=== PATIENT | male | born 1965 | race Caucasian/White ===

== ENCOUNTER 2023-06-17 17:05 | Inpatient (IN) | payer OTHER ==
[2023-06-17] MEDS ORDERED: Ondansetron PF 4 MG/2 ML Vial ONE (17:19)
[2023-06-17] MEDS ORDERED: Acetaminophen 500 MG TAB ONE (17:20)
[2023-06-17 17:49] LABS: #Eosinphils 0.3 10x3/uL (0.0-0.5); #Monocytes 0.1 10x3/uL (0.0-1.1); #Neutrophils 3.2 10x3/uL (1.5-8.4); %Basophils 0.4 % (0.0-2.0); %Eosinophils 5.4 % (0.0-6.0); %Lymphocytes 27.3 % (18.0-47.0); %Monocytes 1.2 % (0.0-10.0); %Neutrophils 65.5 % (40.0-75.0); Hematocrit 41.1 % (38.8-50.0); Mean Corpuscular HGB CONC 34.1 g/dL (32.0-36.0); Mean Corpuscular Hemoglobin 30.4 pg (27.0-33.0); Mean Corpuscular Volume 89.2 fl (81.2-95.1); Mean Platelet Volume 9.8 fl (7.4-10.4); Platelet Count 311 10x3/uL (150-450); RBC Distribution Width 12.9 % (11.5-14.5); Red Blood Cell (RBC) Count 4.61 10x6/uL (4.32-5.72); White Blood Cell (WBC) Count 4.8 10x3/uL (3.5-10.5)
[2023-06-17 17:58] LABS: ALT (SGPT) 17 U/L (8-55); AST (SGOT) 18 U/L (5-34); Albumin 4.3 g/dL (3.5-5.0); Alkaline Phosphatase 68 U/L (40-110); Anion Gap 24 mmol/L (10-20); BUN (Urea Nitrogen) 22 mg/dL (8.4-25.7); Bilirubin, Total 0.4 mg/dL (0.2-1.2); Calc. Creatinine Clearance 0 mL/min (70-130); Calcium 9.3 mg/dL (7.8-10.44); Carbon Dioxide 16 mmol/L (22-29); Chloride 100 mmol/L (98-107); Estimated GFR 52; Globulin 3.4 g/dL (2.4-3.5); Glucose 92 mg/dL (70-105); Magnesium 1.7 mg/dL (1.6-2.6); Potassium 3.9 mmol/L (3.5-5.1); Protein, Total 7.7 g/dL (6.0-8.3); Sodium 136 mmol/L (136-145)
[2023-06-17 18:18] LABS: Bilirubin Neg (Negative); Blood, Urine 250 (Negative); Glucose, Urine (Dipstick) Normal (Negative); Ketone, Urine Negative (Negative); Leukocyte 500 (Negative); Nitrite Positive (Negative); Protein, Urine (Dipstick) 100 mg/dl (Neg-Trace); Urobilinogen Normal mg/dL (Less than 2); pH, Urine 6.5 (5.0-9.0)
[2023-06-17 18:21] LABS: Clarity Very Cloudy (Clear)
[2023-06-17 18:25] LABS: CAUTI Indications for Culture Fever or rigors; WBC/HPF Greater than 50 HPF (0-3)
[2023-06-17 18:27] LABS: Bacteria/HPF 3+ HPF (None Seen); Squamous Epithelial 0-3 HPF (0-3); Transitional Epithelial 0-3 HPF (None Seen)
[2023-06-17 18:29] LABS: Urine Culture Reflex Yes Yes
[2023-06-17 18:56] LABS: SARS-CoV-2 NAA Rapid Test Not Detected (NotDetected)
[2023-06-17] MEDS ORDERED: cefTRIAXone (ROCEPHIN) 1 GM VIAL ONE (18:56)
[2023-06-17] MEDS ORDERED: Vancomycin 1 GM VIAL ONE (19:15)
[2023-06-17 19:20] LABS: Actual Bicarbonate (HCO3v) 21.7 mEq/L (22-28); Base Excess -2.2 mEq/L (-2 - +2); Calcium, Ionized (venous) 1.03 mmol/L (1.16-1.32); Chloride (VBG) 105 mmol/L (98-106); Hematocrit-VBG 33 % (42.0-52.0); Hemoglobin (Hb) 11.3 g/dL (13.1-17.2); Potassium (VBG) 3.37 mmol/L (3.70-5.30); Puncture Site Other Site; RapidComm Collect By CBN; Sodium 134 mmol/L (133-146); pH (venous) 7.421 (7.32-7.43)
[2023-06-17] MEDS ORDERED: Glucagon 1 MG/ML KIT IM PRN (19:27)
[2023-06-17] MEDS ORDERED: Ondansetron PF 4 MG/2 ML Vial IVP PRN (19:27)
[2023-06-17] MEDS ORDERED: Dextrose 5% in Water 1,000 ML IV PRN (19:27)
[2023-06-17] MEDS ORDERED: Calcium Carbonate 500 MG ChewTAB PO PRN (19:27)
[2023-06-17] MEDS ORDERED: Dextrose 50% Abboject 50 ML SYRINGE SLOW IVP PRN (19:27)
[2023-06-17] MEDS ORDERED: HYDROcodone/Acetaminophen 5/325 mg Tablet PO PRN (19:27)
[2023-06-17] MEDS ORDERED: Senokot S 8.6-50 MG TAB PO PRN (19:27)
[2023-06-17] MEDS ORDERED: Zolpidem Tartrate 5 MG TAB PO PRN (19:27)
[2023-06-17] MEDS ORDERED: HumaLOG 300 UNITS/3 ML VIAL SC PRN (19:27)
[2023-06-17 20:31] LABS: Lactic Acid 0.9 mmol/L (0.5-2.2)
[2023-06-17] MEDS ORDERED: Morphine 2 MG/ML VIAL SLOW IVP PRN (20:32)
[2023-06-17] MEDS ORDERED: Tamsulosin HCl 0.4 MG CAP PO SCH (21:30)
[2023-06-17 21:44] VITALS: BMI 26.0
[2023-06-17] MEDS ORDERED: Meropenem 1 GM in Sodium Chloride 0.9% 100 ML IVPB SCH (22:00)
[2023-06-17] MEDS: Lactated Ringer's 1,000 ML IV SCH (22:14)
[2023-06-17] MEDS: Meropenem 1 GM in Sodium Chloride 0.9% 100 ML IVPB SCH ×2 (22:14→22:15)
[2023-06-17] MEDS: Phenazopyridine HCl 95 MG TAB PO SCH (22:15)
[2023-06-18] MEDS ORDERED: FLU VACC QS2023-24(6MOS UP)/PF 60 MCG/0.5 ML SYRINGE IM ONE (04:15)
[2023-06-18 04:33] LABS: #Eosinphils 0.1 10x3/uL (0.0-0.5); #Monocytes 0.3 10x3/uL (0.0-1.1); #Neutrophils 5.8 10x3/uL (1.5-8.4); %Basophils 0.3 % (0.0-2.0); %Eosinophils 2.1 % (0.0-6.0); %Lymphocytes 6.9 % (18.0-47.0); %Monocytes 4.5 % (0.0-10.0); %Neutrophils 85.8 % (40.0-75.0); Hematocrit 31.9 % (38.8-50.0); Hemoglobin 10.9 g/dL (13.5-17.5); Mean Corpuscular HGB CONC 34.2 g/dL (32.0-36.0); Mean Corpuscular Hemoglobin 30.2 pg (27.0-33.0); Mean Corpuscular Volume 88.4 fl (81.2-95.1); Mean Platelet Volume 9.8 fl (7.4-10.4); Platelet Count 190 10x3/uL (150-450); RBC Distribution Width 13.1 % (11.5-14.5); Red Blood Cell (RBC) Count 3.61 10x6/uL (4.32-5.72); White Blood Cell (WBC) Count 6.7 10x3/uL (3.5-10.5)
[2023-06-18 04:39] LABS: Lactic Acid 0.9 mmol/L (0.5-2.2)
[2023-06-18 04:46] LABS: Anion Gap 13 mmol/L (10-20); BUN (Urea Nitrogen) 18 mg/dL (8.4-25.7); Calc. Creatinine Clearance 79 mL/min (70-130); Calcium 7.7 mg/dL (7.8-10.44); Carbon Dioxide 21 mmol/L (22-29); Chloride 109 mmol/L (98-107); Estimated GFR 72; Glucose 91 mg/dL (70-105); Sodium 139 mmol/L (136-145)
[2023-06-18] MEDS: Meropenem 1 GM in Sodium Chloride 0.9% 100 ML IVPB SCH ×3 (06:35→21:47)
[2023-06-18] MEDS: Phenazopyridine HCl 95 MG TAB PO SCH ×2 (11:39→21:47)
[2023-06-18] MEDS: Finasteride 5 MG TAB PO SCH (11:39)
[2023-06-18] MEDS: Lactated Ringer's 1,000 ML IV SCH ×2 (11:40→17:29)
[2023-06-18] MEDS: Acetaminophen 325 MG TAB PO PRN ×2 (14:57→20:10)
[2023-06-18] MEDS: Tamsulosin HCl 0.4 MG CAP PO SCH (20:09)
[2023-06-18] MEDS ORDERED: Vancomycin 1.5 GRAM/300 ML BAG 1.5 GM in Premix Bag 1 BAG IVPB SCH (21:00)
[2023-06-19 05:06] LABS: #Eosinphils 0.2 10x3/uL (0.0-0.5); #Monocytes 0.4 10x3/uL (0.0-1.1); #Neutrophils 3.1 10x3/uL (1.5-8.4); %Basophils 0.7 % (0.0-2.0); %Eosinophils 4.9 % (0.0-6.0); %Lymphocytes 13.7 % (18.0-47.0); %Monocytes 8.8 % (0.0-10.0); %Neutrophils 71.2 % (40.0-75.0); Hematocrit 34.3 % (38.8-50.0); Hemoglobin 11.7 g/dL (13.5-17.5); Mean Corpuscular HGB CONC 34.1 g/dL (32.0-36.0); Mean Corpuscular Hemoglobin 30.6 pg (27.0-33.0); Mean Corpuscular Volume 89.8 fl (81.2-95.1); Mean Platelet Volume 9.9 fl (7.4-10.4); Platelet Count 178 10x3/uL (150-450); RBC Distribution Width 13.2 % (11.5-14.5); Red Blood Cell (RBC) Count 3.82 10x6/uL (4.32-5.72); White Blood Cell (WBC) Count 4.3 10x3/uL (3.5-10.5)
[2023-06-19 05:14] LABS: Anion Gap 13 mmol/L (10-20); BUN (Urea Nitrogen) 11 mg/dL (8.4-25.7); Calc. Creatinine Clearance 86 mL/min (70-130); Carbon Dioxide 22 mmol/L (22-29); Chloride 105 mmol/L (98-107); Estimated GFR 80; Glucose 107 mg/dL (70-105); Potassium 3.5 mmol/L (3.5-5.1); Sodium 136 mmol/L (136-145)
[2023-06-19] MEDS: Meropenem 1 GM in Sodium Chloride 0.9% 100 ML IVPB SCH ×4 (05:57→21:00)
[2023-06-19] MEDS: Lactated Ringer's 1,000 ML IV SCH (05:57)
[2023-06-19] MEDS: Finasteride 5 MG TAB PO SCH (09:14)
[2023-06-19] MEDS: Acetaminophen 325 MG TAB PO PRN ×2 (10:21→18:15)
[2023-06-19] MEDS: Phenazopyridine HCl 95 MG TAB PO SCH ×2 (10:31→20:59)
[2023-06-19] MEDS ORDERED: metFORMIN 500 MG TAB PO SCH (17:00)
[2023-06-19] MEDS: Tamsulosin HCl 0.4 MG CAP PO SCH (20:55)
[2023-06-20] MEDS: Meropenem 1 GM in Sodium Chloride 0.9% 100 ML IVPB SCH ×2 (05:37→14:20)
[2023-06-20] MEDS: Acetaminophen 325 MG TAB PO PRN (06:24)
[2023-06-20] MEDS: Finasteride 5 MG TAB PO SCH (08:23)
[2023-06-20 13:09] VITALS: BP 152/89; TEMP 98.5
== END 2023-06-20 16:35 | disposition home or self-care (01) | DRG 872 ==
LOC: CSHERS 17:05 → CSHTELE 18:50
PROVIDERS: ADMIT Student in an Organized Health Care Education/Training Program; ATTEND Family Medicine
DX: A41.9 Sepsis, unspecified organism (principal); E87.20 Acidosis, unspecified; N17.9 Acute kidney failure, unspecified; R65.20 Severe sepsis without septic shock; Z20.822 Contact with and (suspected) exposure to COVID-19; E78.5 Hyperlipidemia, unspecified; R31.0 Gross hematuria; N18.2 Chronic kidney disease, stage 2 (mild); E11.22 Type 2 diabetes mellitus with diabetic chronic kidney disease; I12.9 Hypertensive chronic kidney disease with stage 1 through stage 4 chronic kidney disease, or unspecified chronic kidney disease; N40.1 Benign prostatic hyperplasia with lower urinary tract symptoms; R33.8 Other retention of urine; Z79.82 Long term (current) use of aspirin; Z79.899 Other long term (current) drug therapy; Z98.890 Other specified postprocedural states; Z98.49 Cataract extraction status, unspecified eye
CPT/HCPCS: 36415; 36416; 71045; 74177; 80048; 80053; 81001; 82805; 83605; 83735; 84145; 85025; 87040; 87077; 87086; 87149; 87186; 88112; 88305; 93005; 93010; J0696; J1815; J2185; J2405; J3370; J3490; J7120

== ENCOUNTER 2024-07-11 11:50 | Emergency (ER) | payer OTHER ==
[2024-07-11 12:51] LABS: Bilirubin Neg (Negative); Blood, Urine 250 (Negative); Clarity Cloudy (Clear); Glucose, Urine (Dipstick) Normal (Negative); Ketone, Urine Negative (Negative); Leukocyte 500 (Negative); Nitrite Positive (Negative); Protein, Urine (Dipstick) 100 mg/dl (Neg-Trace); Urobilinogen Normal mg/dL (Less than 2)
[2024-07-11 13:05] LABS: Hematocrit 47.1 % (38.8-50.0); Hemoglobin 16.1 g/dL (13.5-17.5); MDiff Complete? YES; Mean Corpuscular HGB CONC 34.2 g/dL (32.0-36.0); Mean Corpuscular Hemoglobin 30.3 pg (27.0-33.0); Mean Corpuscular Volume 88.5 fL (81.2-95.1); Mean Platelet Volume 9.2 fL (7.4-10.4); Platelet Count 204 10x3/uL (150-450); RBC Distribution Width 11.8 % (11.5-14.5); Red Blood Cell (RBC) Count 5.32 10x6/uL (4.32-5.72); White Blood Cell (WBC) Count 12.7 10x3/uL (3.5-10.5)
[2024-07-11 13:18] LABS: Bacteria/HPF 4+ HPF (None Seen); CAUTI Indications for Culture Pelvic or flank pain
[2024-07-11 13:19] LABS: ALT (SGPT) 19 U/L (8-55); AST (SGOT) 19 U/L (5-34); Albumin 3.9 g/dL (3.4-4.8); Alkaline Phosphatase 58 U/L (40-110); Anion Gap 13 mmol/L (10-20); BUN (Urea Nitrogen) 23 mg/dL (8.4-25.7); Bilirubin, Total 0.6 mg/dL (0.2-1.2); Calc. Creatinine Clearance 0 mL/min (70-130); Calcium 9.3 mg/dL (7.8-10.44); Carbon Dioxide 22 mmol/L (23-31); Chloride 104 mmol/L (98-107); Estimated GFR 60; Glucose 99 mg/dL (80-115); Potassium 3.9 mmol/L (3.5-5.1); Protein, Total 6.9 g/dL (5.8-8.1); Sodium 135 mmol/L (136-145)
[2024-07-11 13:20] LABS: Triple Phosphate Crystal 1+ HPF (None Seen); Urine Culture Reflex Yes Yes
[2024-07-11 13:21] LABS: Band 4 % (5-11); Lymphocytes 8 % (21-51); Monocytes 5 % (0-10); Neutrophil 83 % (42-75)
[2024-07-11] MEDS ORDERED: cefTRIAXone (ROCEPHIN) 2 GM VIAL ONE (13:37)
[2024-07-11] MEDS ORDERED: Ketorolac Tromethamine 30 MG (1 mL) VIAL ONE (13:37)
[2024-07-11 14:21] LABS: Troponin I Less than 0.010 ng/mL (< 0.028)
== END 2024-07-11 18:05 | disposition short-term general hospital (02) ==
LOC: CSHERS 11:50
DX: N13.30 Unspecified hydronephrosis (principal); N39.0 Urinary tract infection, site not specified; E11.9 Type 2 diabetes mellitus without complications; I10 Essential (primary) hypertension
CPT/HCPCS: 36415; 74176; 80053; 81001; 83605; 84484; 85025; 87077; 87086; 87186; 93005; 96374; 96375; J0696; J1885